=== PATIENT | male | born 1970 | race African-American/Black ===

== ENCOUNTER 2018-11-29 11:59 | Inpatient (IN) | payer OTHER ==
[2018-11-29 13:04] VITALS: BMI 32.1
--- NOTE | 2018-11-29 13:52 | HP ---
COWS - Scale Resting Pulse: 0= [place] 80 or Below Sweatin= Chills/Flushing Restless Observation: 3= Extraneous Movement Pupil Size: 1= Pupils >than Normal Bone or Joint Aches: 2= Severe Diffuse Aches Runny Nose/ Eye Tearin= Runny Nose/Eyes GI Upset > 30mins: 2= Nausea/Diarrhea Tremor Observation: 2= Slight Tremor Visible Yawning Observation: 2= >3x During Session Anxiety or Irritability: 2=Irritable/Anxious Goose Flesh Skin: 0=Smooth Skin COWS Score: 17 CIWA Score - Admission Criteria [facility] Guidelines: Admission for Medically Managed Detox: Requires at least one of the followin. CIWA greater than 12 2. Seizures within the past 24 hours 3. Delirium tremens within the past 24 hours 4. Hallucinations within the past 24 hours 5. Acute intervention needed for co occurring medical disorder 6. Acute intervention needed for co occurring psychiatric disorder 7. Severe withdrawal that cannot be handled at a lower level of care (continued vomiting, continued diarrhea, abnormal vital signs) requiring intravenous medication and/or fluids 8. Admission ROS S - [facility] Chief Complaint: I need help to stop using heroin,cocaine and marijuana Allergies/Adverse Reactions: Allergies Allergy/AdvReac Type Severity Reaction Status Date / Time No Known Allergies Allergy Verified 11/29/18 12:55 History of Present Illness: this 48 years old male with heroin,cocaine and marijuana dependence,seeking detox,withdrawal symptom, last detox [facility] 11/26/18 to 11/27/18 not completed multiple admissions in the past but keep relapsing first admission in this facility nicotine dependence 1 pack/day,does not want nicotine replacement longest sobriety 8 months plan for rehab after detox Exam Limitations: No Limitations - Ebola screening Have you traveled outside of the country in the last 21 days: No (N) Have you had contact with anyone from an Ebola affected area: No Do you have a fever: No - Review of Systems Constitutional: Chills, Loss of Appetite, Malaise, Night Sweats, Changes in sleep EENT: reports: Tearing, Nose Congestion Respiratory: reports: No Symptoms reported Cardiac: reports: No Symptoms Reported GI: reports: Diarrhea, Nausea, Vomiting : reports: No Symptoms Reported Musculoskeletal: reports: Back Pain, Joint Pain, Muscle Pain, Joint Stiffness Integumentary: reports: Dryness Neuro: reports: Headache, Tremors Endocrine: reports: No Symptoms Reported Hematology: reports: No Symptoms Reported Psychiatric: reports: No Sypmtoms Reported, Judgement Intact, Mood/Affect Appropiate, Orientated x3 Other Systems: Reviewed and Negative Patient History - Patient Medical History Hx Anemia: No Hx Asthma: No Hx Chronic Obstructive Pulmonary Disease (COPD): No Hx Cancer: No Hx Cardiac Disorders: No Hx Congestive Heart Failure: No Hx Hypertension: No Hx Hypercholesterolemia: No Hx Pacemaker: No HX Cerebrovascular Accident: No Hx Seizures: No Hx Dementia: No Hx Diabetes: No Hx Gastrointestinal Disorders: No Hx Liver Disease: No Hx Genitourinary Disorders: No Hx Sexually Transmitted Disorders: No Hx Renal Disease (ESRD): No Hx Thyroid Disease: No Hx Human Immunodeficiency Virus (HIV): No (last 12/10 negative) Hx Hepatitis C: No Hx Depression: No Hx Suicide Attempt: No Hx Bipolar Disorder: No Hx Schizophrenia: No Other Medical History: no suicidal,no homicidal - Patient Surgical History Past Surgical History: No - PPD History Previous Implant?: Yes Documented Results: Negative w/o proof Implanted On Prior [facility] Admission?: No PPD to be Administered?: Yes - Smoking Cessation Smoking history: Current every day smoker Have you smoked in the past 12 months: Yes Aproximately how many cigarettes per day: 20 Hx Chewing Tobacco Use: No Initiated information on smoking cessation: Yes 'Breaking Loose' booklet given: 11/29/18 - Substance & Tx. History Hx Alcohol Use: No Hx Substance Use: Yes Substance Use Type: Cocaine, Heroin Hx Substance Use Treatment: Yes ([facility] 11/26/18 to 11/27/18 not completed) - Substances abused Heroin Substance route: Inhalation Frequency: Daily Amount used: 5 bundles Age of first use: 27 Date of last use: 11/29/18 Cocaine Substance route: Inhalation Frequency: Daily Amount used: 2 dimes Age of first use: 27 Date of last use: 11/28/18 Family Disease History - Family Disease History Family History: Denies Admission Physical Exam S - Vital Signs Vital Signs: Vital Signs - 24 hr 11/29/18 12:54 Temperature 96.9 F L Pulse Rate 72 Respiratory 18 Rate Blood Pressure 104/62 - Physical General Appearance: Yes: Moderate Distress, Tremorous, Irritable, Sweating, Anxious HEENTM: Yes: Normal ENT Inspection, LOS, Pharynx Normal Respiratory: Yes: Lungs Clear, Normal Breath Sounds, No Respiratory Distress Neck: Yes: Within Normal Limits, Supple, Trachea in good position Breast: Yes: Within Normal Limits Cardiology: Yes: Within Normal Limits, Regular Rhythm, Regular Rate, S1, S2 Abdominal: Yes: Within Normal Limits, Normal Bowel Sounds, Non Tender, Flat, Soft Genitourinary: Yes: Within Normal Limits Back: Yes: Muscle Spasm Musculoskeletal: Yes: full range of Motion, Back pain, Muscle Pain Extremities: Yes: Within Normal Limits, Normal Range of Motion, Tremors Neurological: Yes: irrigationist designer II-XII NML intact, Fully Oriented, Alert, Motor Strength 5/5 Integumentary: Yes: Dry Lymphatic: Yes: Within Normal Limits - Diagnostic (1) Opioid dependence with withdrawal Current Visit: Yes Status: Acute (2) Cocaine dependence Current Visit: Yes Status: Acute (3) Cannabis dependence Current Visit: Yes Status: Acute (4) Nicotine dependence Current Visit: Yes Status: Acute Cleared for Admission [facility] - Detox or Rehab [facility] Level of Care: Medically Managed Detox Regimen/Protocol: Methadone Screened but not Admitted - Documentation of Visit Screened but not Admitted: No Breathalyzer - Breathalyzer Breathalyzer: 0 Urine Drug Screen - Test Device Lot number: [id number] Expiration date: 06/23/20 - Control Is test valid?: Yes - Results Drug screen NEGATIVE: No Urine drug screen results: THC-Marijuana, JYOTHI-Cocaine, FEN-Fentanyl, MOP-Opiates , MTD-Methadone Inpatient Rehab Admission - Rehab Decision to Admit Inpatient rehab admission?: No
[2018-11-29] MEDS ORDERED: MAGNESIUM HYDROX 2400MG/30ML ORAL SUSPENSION 30 ML CUP PO PRN (14:04)
[2018-11-29] MEDS ORDERED: MENTHOL/PHENOL 1 EACH UD MM PRN (14:04)
[2018-11-29] MEDS ORDERED: hydrOXYzine PAMOATE 25 MG CAPSULE (FP) PO PRN (14:04)
[2018-11-29] MEDS ORDERED: MAG HYDROX/AL HYDROX/SIMETH 30 ML UNIT-DOSE CUP PO PRN (14:04)
[2018-11-29] MEDS ORDERED: ACETAMINOPHEN 325 MG TABLET (FP) PO PRN ×2 (14:04)
[2018-11-29] MEDS ORDERED: BISMUTH SUBSALICYLATE 262 MG/15 ML BTL PO PRN (14:04)
[2018-11-29] MEDS ORDERED: MELATONIN 5 MG TABLETS PO PRN (14:04)
[2018-11-29] MEDS ORDERED: MAGNESIUM CITRATE 300 ML BOTTLE PO PRN (14:04)
[2018-11-29] MEDS ORDERED: METHOCARBAMOL 500 MG TABLET PO PRN (14:04)
[2018-11-29] MEDS ORDERED: cloNIDine HCL 0.1 MG TABLET PO PRN (14:04)
[2018-11-29] MEDS ORDERED: IBUPROFEN 400 MG TABLET (FP) PO PRN (14:04)
[2018-11-29] MEDS ORDERED: METHADONE HCL 10 MG TABLET (FOR DETOX USE ONLY) PO ONE ×2 (14:35→23:00)
--- NOTE | 2018-11-29 15:12 | EKG ---
Test Reason : Blood Pressure : / mmHG Vent. Rate : 061 BPM Atrial Rate : 061 BPM P-R Int : 136 ms QRS Dur : 088 ms QT Int : 434 ms P-R-T Axes : 063 042 021 degrees QTc Int : 436 ms NORMAL SINUS RHYTHM MODERATE VOLTAGE CRITERIA FOR LVH, MAY BE NORMAL VARIANT EARLY REPOLARIZATION BORDERLINE ECG NO PREVIOUS ECGS AVAILABLE Confirmed by JOSE C WARNER MD ([id number]) on 11/29/2018 3:11:49 PM Referred By: Confirmed By:JOSE C WARNER MD
[2018-11-29 17:38] LABS: HEMATOCRIT 40.1 % (35.4-49); HEMOGLOBIN 13.1 GM/dL (11.7-16.9); MCH 31.2 pg (25.7-33.7); MCHC 32.7 g/dl (32.0-35.9); MEAN CELL VOLUME 95.3 fl (80-96); MEAN PLT VOLUME 8.7 fl (7.5-11.1); PLATELET COUNT 236 K/MM3 (134-434); RBC 4.21 M/mm3 (4.00-5.60); RDW 14.5 % (11.9-15.9); WHITE BLOOD COUNT 7.5 K/mm3 (4.0-10.0)
[2018-11-29 17:42] LABS: ALBUMIN 3.3 g/dl (3.4-5.0); BILIRUBIN,TOTAL 0.5 mg/dL (0.2-1); CALCIUM 8.8 mg/dL (8.5-10.1); CREATININE 1.1 mg/dL (0.55-1.3); POTASSIUM 3.7 mmol/L (3.5-5.1); TOT PROT 7.1 g/dl (6.4-8.2)
[2018-11-29 18:02] LABS: EPI CELLS 1.4 /HPF (0-5/HPF); PH,URINE 5.5 (5.0-8.0); URINE APPEARANCE TURBID; URINE BACTERIA 5.9 /hpf (NEGATIVE); URINE BILIRUBIN NEGATIVE (NEGATIVE); URINE CASTS 4 /lpf (0-8); URINE COLOR YELLOW; URINE GLUCOSE (UA) NEGATIVE (NEGATIVE); URINE KETONE TRACE (NEGATIVE); URINE LEUK ESTERASE NEGATIVE (NEGATIVE); URINE NITRITE NEGATIVE (NEGATIVE); URINE PROTEIN NEGATIVE (NEGATIVE); URINE RBC 3 /hpf (0-4); URINE WBC 3 /hpf (0-5)
[2018-11-29 18:47] LABS: URINE CRYSTALS CALCIUM OXALATES /hpf
[2018-11-29] MEDS ORDERED: THIAMINE HCL 100 MG TABLET (FP) PO SCH (22:00)
[2018-11-29] MEDS: diazePAM 5 MG TABLET PO PRN (22:14)
[2018-11-30 06:39] VITALS: BP 128/84; PULSE 57; TEMP 97.9
[2018-11-30] MEDS ORDERED: METHADONE HCL 10 MG TABLET (FOR DETOX USE ONLY) PO ONE (10:00)
[2018-11-30] MEDS ORDERED: PRENATAL VITAMINS W/ FOLIC ACID TABLET (FP) PO SCH (10:00)
[2018-11-30] MEDS: diazePAM 5 MG TABLET PO PRN (10:07)
--- NOTE | 2018-11-30 10:29 | PN ---
[facility] COWS - Scale Resting Pulse: 0= [place] 80 or Below Sweatin= Chills/Flushing Restless Observation: 0= Sits Still Pupil Size: 1= Pupils >than Normal Bone or Joint Aches: 1= Mild Discomfort Runny Nose/ Eye Tearin= Nasal Congestion GI Upset > 30mins: 1= Stomach Cramp Tremor Observation of Outstretched Hands: 2= Slight Tremor Visible Yawning Observation: 1= 1-2x During Session Anxiety or Irritability: 2=Irritable/Anxious Goose Flesh Skin: 3=Piloerection COWS Score: 13 [facility] Progress Note (SOAP) Subjective: doing well with methadone detox regimen Objective: 11/30/18 10:28 Vital Signs Temperature 97.9 F 11/30/18 06:38 Pulse Rate 57 L 11/30/18 06:38 Respiratory Rate 18 11/30/18 06:38 Blood Pressure 128/84 11/30/18 06:38 O2 Sat by Pulse Oximetry (%) Laboratory Last Values WBC 7.5 K/mm3 (4.0-10.0) 11/29/18 14:10 RBC 4.21 M/mm3 (4.00-5.60) 11/29/18 14:10 Hgb 13.1 GM/dL (11.7-16.9) 11/29/18 14:10 Hct 40.1 % (35.4-49) 11/29/18 14:10 MCV 95.3 fl (80-96) 11/29/18 14:10 MCH 31.2 pg (25.7-33.7) 11/29/18 14:10 MCHC 32.7 g/dl (32.0-35.9) 11/29/18 14:10 RDW 14.5 % (11.9-15.9) 11/29/18 14:10 Plt Count 236 K/MM3 (134-434) 11/29/18 14:10 MPV 8.7 fl (7.5-11.1) 11/29/18 14:10 Sodium 137 mmol/L (136-145) 11/29/18 14:10 Potassium 3.7 mmol/L (3.5-5.1) 11/29/18 14:10 Chloride 104 mmol/L (98-107) 11/29/18 14:10 Carbon Dioxide 28 mmol/L (21-32) 11/29/18 14:10 Anion Gap 5 MMOL/L (8-16) L 11/29/18 14:10 BUN 11 mg/dL (7-18) 11/29/18 14:10 Creatinine 1.1 mg/dL (0.55-1.3) 11/29/18 14:10 Est GFR (CKD-EPI)AfAm 92.81 11/29/18 14:10 Est GFR (CKD-EPI)NonAf 80.08 11/29/18 14:10 Random Glucose 97 mg/dL (74-106) 11/29/18 14:10 Calcium 8.8 mg/dL (8.5-10.1) 11/29/18 14:10 Total Bilirubin 0.5 mg/dL (0.2-1) 11/29/18 14:10 AST 28 U/L (15-37) 11/29/18 14:10 ALT 23 U/L (13-61) 11/29/18 14:10 Alkaline Phosphatase 76 U/L (45-117) 11/29/18 14:10 Total Protein 7.1 g/dl (6.4-8.2) 11/29/18 14:10 Albumin 3.3 g/dl (3.4-5.0) L 11/29/18 14:10 Urine Color Yellow 11/29/18 15:30 Urine Appearance Turbid 11/29/18 15:30 Urine pH 5.5 (5.0-8.0) 11/29/18 15:30 Ur Specific [place] 1.028 (1.010-1.035) 11/29/18 15:30 Urine Protein Negative (NEGATIVE) 11/29/18 15:30 Urine Glucose (UA) Negative (NEGATIVE) 11/29/18 15:30 Urine Ketones Trace (NEGATIVE) H 11/29/18 15:30 Urine Blood Trace (NEGATIVE) 11/29/18 15:30 Urine Nitrite Negative (NEGATIVE) 11/29/18 15:30 Urine Bilirubin Negative (NEGATIVE) 11/29/18 15:30 Urine Urobilinogen 1.0 mg/dL (0.2-1.0) 11/29/18 15:30 Ur Leukocyte Esterase Negative (NEGATIVE) 11/29/18 15:30 Urine WBC (Auto) 3 /hpf (0-5) 11/29/18 15:30 Urine RBC (Auto) 3 /hpf (0-4) 11/29/18 15:30 Urine Casts (Auto) 4 /lpf (0-8) 11/29/18 15:30 U Epithel Cells (Auto) 1.4 /HPF (0-5/HPF) 11/29/18 15:30 Urine Crystals (Auto) Calcium oxalates /hpf 11/29/18 15:30 Urine Bacteria (Auto) 5.9 /hpf (NEGATIVE) 11/29/18 15:30 RPR Titer Nonreactive (NONREACTIVE) 11/29/18 14:10 lab noted Assessment: 11/30/18 10:29 opiate withdrawal sx 11/30/18 10:29 Plan: continue detox
[2018-12-01] MEDS ORDERED: METHADONE HCL 10 MG TABLET (FOR DETOX USE ONLY) PO ONE (10:00)
[2018-12-02] MEDS ORDERED: METHADONE HCL 10 MG TABLET (FOR DETOX USE ONLY) PO ONE (10:00)
[2018-12-02] MEDS ORDERED: METHADONE (DETOX) 10 MG, METHADONE (DETOX) 5 MG PO ONE (10:00)
[2018-12-03] MEDS ORDERED: METHADONE HCL 5 MG TABLET (FOR DETOX USE ONLY) PO ONE (06:00)
[2018-12-03] MEDS ORDERED: METHADONE HCL 10 MG TABLET (FOR DETOX USE ONLY) PO ONE (10:00)
[2018-12-04] MEDS ORDERED: METHADONE HCL 5 MG TABLET (FOR DETOX USE ONLY) PO ONE (06:00)
== END 2018-11-30 14:19 | disposition left against medical advice (07) | DRG 770 ==
LOC: YASAS 11:59 → Y3N 14:20
PROVIDERS: ADMIT Surgery; ATTEND Surgery
PROC: HZ2ZZZZ Detoxification Services for Substance Abuse Treatment (ICD-10-PCS; principal; 2018-11-29)
DX: F11.23 Opioid dependence with withdrawal (principal); F14.20 Cocaine dependence, uncomplicated; F12.20 Cannabis dependence, uncomplicated; F17.210 Nicotine dependence, cigarettes, uncomplicated
CPT/HCPCS: 36415; 80053; 81003; 85027; 86593; 93005; 93010